=== PATIENT | female | born 1985 | race Caucasian/White ===

== ENCOUNTER 2018-06-10 15:47 | Emergency (ER) | payer OTHER ==
[~2018-06-10] VITALS: Ht 162.6 cm; Wt 83.5 kg
--- NOTE | 2018-06-10 16:22 | NUR ---
PT BIB SELF C/O EPIGASTRIC PAIN WITH VOMITING X 5 EPISODES TODAY. PT REPORTS ABD PAIN AT 3/10, AND BILATERAL HAND CRAMPING AT 10/10. REPORTS DRINKING 1 PINT OF VODKA EVERYDAY THIS WEEKEND, LAST DRINK WAS YESTERDAY AFTERNOON. VSS. ER MD TO SEE PT. MEDHX:PANCREATITIS
[2018-06-10] MEDS ORDERED: NACL 0.9% 1,000 ML IV ONE (17:08)
[2018-06-10] MEDS ORDERED: NACL 0.9% 1,000 ML IV SCH (17:08)
[2018-06-10] MEDS ORDERED: MORPHINE SULFATE 4 MG/ML SYR IVP ONE (17:10)
[2018-06-10] MEDS ORDERED: KETOROLAC 30 MG/ML VIAL IVP ONE (17:10)
[2018-06-10 17:50] LABS: ANION GAP 12.1 (8-16); CARBON DIOXIDE 30.4 mmol/L (21-32); CREATININE 0.7 mg/dL (0.6-1.3); POTASSIUM 3.5 mmol/L (3.5-5.1)
[2018-06-10 17:53] LABS: BASOPHILS % (AUTO) 0.2 % (0.0-2.0); EOSINOPHILS # (AUTO) 0.1 K/uL (0-0.4); EOSINOPHILS % (AUTO) 0.8 % (0.0-4.0); HEMATOCRIT 42.1 % (36-48); HEMOGLOBIN 14.7 g/dL (12.0-16.0); LYMPHOCYTES # (AUTO) 1.5 K/uL (2.5-16.5); LYMPHOCYTES % (AUTO) 14.8 % (20.5-51.1); MEAN CORPUSCULAR HEMOGLOBIN 42 pg (27-31); MEAN CORPUSCULAR HGB CONC 35 g/dL (33-37); MEAN CORPUSCULAR VOLUME 120.5 fL (80-94); MONOCYTES # (AUTO) 0.4 K/uL (0.8-1.0); MONOCYTES % (AUTO) 4.1 % (1.7-9.3); NEUTROPHILS % (AUTO) 80.1 % (42.2-75.2); PLATELET COUNT (AUTO) 247 K/uL (140-450); RED BLOOD CELL COUNT(AUTO) 3.49 MIL/uL (4.20-5.40); RED CELL DISTRIBUTION WIDTH 15.3 % (11.6-13.7); WHITE BLOOD COUNT (AUTO) 9.9 K/uL (4.8-10.8)
[2018-06-10 17:56] LABS: TOTAL BILIRUBIN 1.4 mg/dL (0.0-1.0)
[2018-06-10 18:08] LABS: APPEARANCE,URINE HAZY (CLEAR); BILIRUBIN,URINE 2+ (NEGATIVE); BLOOD, URINE NEGATIVE (NEGATIVE); COLOR,URINE ORANGE (YELLOW); LEUKOCYTE ESTERASE ,URINE TRACE (NEGATIVE); NITRITE, URINE POSITIVE (NEGATIVE); UGLUCOSE TRACE (NEGATIVE)
[2018-06-10 18:13] LABS: BARBITURATE, URINE NEG. ng/ml (NEG <=200); BENZODIAZEPINE, URINE NEG. ng/mL (NEG <=200); CANNABINOID, URINE NEG. ng/mL (NEG <=50); COCAINE, URINE NEG. ng/mL (NEG <=300); OPIATE, URINE NEG. ng/mL (NEG <=2000); PHENCYCLIDINE SCREEN,URINE NEG. ng/mL (NEG <=25)
[2018-06-10 18:32] LABS: RBC,URINE 0 /HPF (0-5); WBC,URINE 0-5 /HPF (0-5)
[2018-06-10] MEDS ORDERED: LEVOFLOXACIN 500 MG TAB PO ONE (18:50)
--- NOTE | 2018-06-10 19:10 | NUR ---
RECEIVED REPORT FROM ANTONIETA QUESADA.
[2018-06-10] MEDS ORDERED: cefTRIAXone 1,000 MG VIAL ONE (19:18)
--- NOTE | 2018-06-10 19:44 | NUR ---
Patient discharged with v/s stable. Written and verbal after care instructions given and explained. Patient alert, oriented and verbalized understanding of instructions. Ambulatory with steady gait. All questions addressed prior to discharge. ID band removed. Patient advised to follow up with PMD. Rx of Levaquin, Tramadol, Motrin given. Patient educated on indication of medication including possible reaction and side effects. Opportunity to ask questions provided and answered.
[2018-06-10 19:47] VITALS: BP 124/83
== END 2018-06-10 19:44 | disposition home or self-care (01) ==
LOC: MED 15:47
DX: N39.0 Urinary tract infection, site not specified (principal); Z91.040 Latex allergy status
CPT/HCPCS: 36415; 74176; 80053; 80305; 81001; 81025; 82150; 83690; 85025; 96361; 96365; 96375; 99284; J0696; J1885; J2270; J7030

== ENCOUNTER 2018-07-21 06:00 | Inpatient (IN) | payer OTHER ==
[~2018-07-21] VITALS: Ht 162.6 cm; Wt 81.6 kg
[2018-07-21 06:00] VITALS: BP 131/89
--- NOTE | 2018-07-21 06:12 | NUR ---
33 Y/O F PRESENTED TO ED WITH C/O VOMITTING AND R LATERAL SIDE PAIN X1DAY. AAOX4. 5-6 EPISODES OF VOMITTING LAST NIGHT. 8/10 PAIN, SHARP AND INTERMINTENT. RADIATES TO R LOWER BACK. DENIES HEMATURIA AND DYSURIA. TENDERNESS TO R LATERAL SIDE. PER PT USED HEATING PAD WITH NO RELIEF. BEDRAILS X1 UP, BED IN LOWEST POSTION. WILL CONTINUE TO MONITOR.
[2018-07-21] MEDS ORDERED: ONDANSETRON 4 MG ODT PO ONE (06:20)
[2018-07-21] MEDS ORDERED: NACL 0.9% 1,000 ML IV SCH (06:29)
[2018-07-21] MEDS ORDERED: ONDANSETRON 4 MG/2 ML VIAL IVP ONE ×2 (06:30→08:25)
[2018-07-21] MEDS ORDERED: KETOROLAC 30 MG/ML VIAL IVP ONE (06:30)
[2018-07-21 06:50] LABS: BASOPHILS % (AUTO) 0.3 % (0.0-2.0); EOSINOPHILS % (AUTO) 0.6 % (0.0-4.0); HEMATOCRIT 43.7 % (36-48); HEMOGLOBIN 15.3 g/dL (12.0-16.0); LYMPHOCYTES # (AUTO) 0.9 K/uL (2.5-16.5); LYMPHOCYTES % (AUTO) 11.7 % (20.5-51.1); MEAN CORPUSCULAR HEMOGLOBIN 42 pg (27-31); MEAN CORPUSCULAR HGB CONC 35 g/dL (33-37); MEAN CORPUSCULAR VOLUME 118.6 fL (80-94); MONOCYTES # (AUTO) 0.3 K/uL (0.8-1.0); NEUTROPHILS # (AUTO) 6.3 K/uL (1.8-7.7); NEUTROPHILS % (AUTO) 83.4 % (42.2-75.2); PLATELET COUNT (AUTO) 209 K/uL (140-450); RED BLOOD CELL COUNT(AUTO) 3.68 MIL/uL (4.20-5.40); RED CELL DISTRIBUTION WIDTH 15.1 % (11.6-13.7); WHITE BLOOD COUNT (AUTO) 7.5 K/uL (4.8-10.8)
[2018-07-21 06:55] LABS: APPEARANCE,URINE CLEAR (CLEAR); BILIRUBIN,URINE 1+ (NEGATIVE); BLOOD, URINE NEGATIVE (NEGATIVE); COLOR,URINE ORANGE (YELLOW); LEUKOCYTE ESTERASE ,URINE NEGATIVE (NEGATIVE); NITRITE, URINE NEGATIVE (NEGATIVE); PH,URINE 7.5 (5.0-9.0); UGLUCOSE NEGATIVE (NEGATIVE)
[2018-07-21 07:07] LABS: ALBUMIN 3.4 g/dL (3.4-5.0); ANION GAP 16.1 (8-16); CARBON DIOXIDE 26.5 mmol/L (21-32); CREATININE 0.7 mg/dL (0.6-1.3); POTASSIUM 3.6 mmol/L (3.5-5.1); TOTAL BILIRUBIN 1.7 mg/dL (0.0-1.0)
--- NOTE | 2018-07-21 07:07 | NUR ---
BEDSIDE REPORT GIVEN TO ANTONIETA TORRES. TRANSFER OF CARE AT THIS TIME.
--- NOTE | 2018-07-21 07:08 | NUR ---
Recieved report from ANTONIETA Nice. Pt's VSS. Nausea and vomiting have been improved. Ultra sounds done at bedside.
[2018-07-21 07:14] LABS: RBC,URINE NONE SEEN /HPF (0-5); WBC,URINE 0-5 /HPF (0-5)
[2018-07-21 07:15] LABS: YEAST,URINE Few /HPF (None Seen)
--- NOTE | 2018-07-21 08:19 | NUR ---
Patient being evaluated by DR AGUILAR at bedside.
[2018-07-21] MEDS ORDERED: MORPHINE SULFATE 4 MG/ML SYR IVP ONE (08:25)
[2018-07-21] MEDS ORDERED: ALBUTEROL 0.083% 2.5 MG/3 ML NEBU IH PRN (09:05)
[2018-07-21] MEDS ORDERED: ACETAMINOPHEN 325 MG TAB PO PRN (09:05)
[2018-07-21] MEDS ORDERED: DEXT 5% /NACL 0.9% 1,000 ML IV SCH (09:05)
[2018-07-21] MEDS ORDERED: ONDANSETRON 4 MG/2 ML VIAL IVP PRN (09:05)
--- NOTE | 2018-07-21 10:01 | NUR ---
Pt is holding for being admitted and on NPO status.
[2018-07-21] MEDS: MORPHINE SULFATE 2 MG/ML SYR IVP PRN ×3 (10:22→22:09)
--- NOTE | 2018-07-21 10:22 | NUR ---
PT C/O HER PAIN IS 5/10. MORPHINE SALFATE 2 MG WAS GIVEN BY IV PUSH.
[2018-07-21] MEDS ORDERED: ALBU0.0912 IH (11:11)
--- NOTE | 2018-07-21 11:45 | NUR ---
MD Quinten was paged regarding pt's pain 08/25 and the permission of giving morphine.
[2018-07-21] MEDS: MORPHINE SULFATE 4 MG/ML SYR IVP PRN (12:10)
--- NOTE | 2018-07-21 12:14 | NUR ---
Talked to Dr. Quinten MD through phone at 11:58 am, July 21, 2018. According to Dr. Quinten MD, pt has been given Morphine 4 mg for her pain 08/25 at 12:10 pm.
--- NOTE | 2018-07-21 12:26 | NUR ---
Pt's pain has been improved to 2/10. No any adverse drug effects noticed. Pt's VSS, alerted and oriented.
--- NOTE | 2018-07-21 12:26 | NUR ---
Erica alcantar in ED - 07/21/18 at 1246 by MED Pt's pain has been improved to 02/25. No any adverse drug effects noticed. Pt's VSS, alerted and oriented.
[2018-07-21] MEDS ORDERED: PIPERACILLIN/TAZOBACTAM 3.375 GM in DEXTROSE 5% 50 ML IV SCH (13:00)
[2018-07-21] MEDS ORDERED: LACTULOSE 20 GM/30 ML UDC PO SCH (13:05)
[2018-07-21] MEDS ORDERED: PIPER/TAZO 3.375GM/D5W PREMIX 50 ML IV SCH ×2 (13:22→21:00)
--- NOTE | 2018-07-21 13:50 | NUR ---
PATIENT ARRIVED UNIT VIA WHEELCHAIR ACCOMPANIED BY ER NURSE BRIAN. PATIENT IS AAOX4. DENIES PAIN AND SOB. RESPIRATION EVEN AND UNLABORED ON RA. NO SIGNS OF DISTRESS NOTED. IV ON LAC 20G, CLEAN AND INTACT, INFUSING PER MD ORDER. SKIN CLEAN AND INTACT. PATIENT IS ABLE TO AMBULATE AND CONTINENT. ORIENTED PATIENT TO THE ROOM, HOW TO USE THE CALL LIGHT, TV, LIGHT REMOTE, BED REMOTE, AND BATHROOM. PATIENT VERBALIZED UNDERSTANDING. DISCUSSED PLAN OF CARE WITH PATIENT, AND PATIENT VERBALIZED OK. VITAL SIGNS TAKEN AND MRSA COLLECTED. ALLERGY PRECAUTION ARM BAND APPLIED. BED IN LOW POSITION AND CALL LIGHT WITHIN REACH. INSTRUCTED PATIENT TO USE THE CALL LIGHT FOR ANY ASSISTANCE AND PATIENT WAS AWARE.
--- NOTE | 2018-07-21 13:50 | NUR ---
Patient has been admitted to Med-Surg, room 126B. Belongings list completed. Report to ANTONIETA Mei.
[2018-07-21] MEDS ORDERED: POTASSIUM CHLORIDE 20% 40 MEQ/15 ML UDC PO SCH (14:00)
[2018-07-21] MEDS ORDERED: THIAMINE 200 MG/2 ML VIAL IM SCH (14:00)
[2018-07-21] MEDS: SENNA 8.6 MG TAB PO SCH ×2 (14:17→16:48)
[2018-07-21] MEDS: chlordiazePOXIDE 25 MG CAP PO SCH ×2 (14:18→16:47)
--- NOTE | 2018-07-21 14:20 | NUR ---
ADMINISTERED SCHEDULE MEDS PER MD ORDER, PATIENT TOLERATED WELL. PATIENT IS RESTING ON BED AT THIS TIME. DENIES PAIN. NO SIGNS OF DISTRESS NOTED. BED IN LOW POSITION AND CALL LIGHT WITHIN REACH. INSTRUCTED PATIENT TO USE THE CALL LIGHT FOR ANY ASSISTANCE AND PATIENT WAS AWARE.
--- NOTE | 2018-07-21 16:10 | NUR ---
DR WILLARD IS TALKING TO PATIENT AT BEDSIDE. NO SIGNS OF DISTRESS NOTED.
--- NOTE | 2018-07-21 16:35 | NUR ---
PLACED A HAT IN THE TOILET AND INSTRUCTED PATIENT THAT STOOL NEEDS TO BE COLLECT FOR CULTURE. AND PATIENT WAS AWARE.
[2018-07-21] MEDS: NACL 0.9% 1,000 ML IV SCH (16:52)
--- NOTE | 2018-07-21 16:52 | NUR ---
PATIENT COMPLAINED THAT 8/10 PAIN ON HER RIGHT ABDOMEN REGION, ADMINISTERED PRN PAIN MED PER MD ORDER, PATIENT TOLERATED WELL. PATIENT IS PLAYING HER PHONE ON BED AT THIS TIME. SAFETY MEASURES IN PLACE. BED IN LOW POSITION AND CALL LIGHT WITHIN REACH.
[2018-07-21] MEDS ORDERED: LEVOFLOXACIN 500 MG/D5W PREMIX 100 ML IV SCH (17:00)
--- NOTE | 2018-07-21 17:25 | NUR ---
PATIENT IS TALKING TO KENDRA AT BEDSIDE. NO SIGNS OF DISTRESS NOTED. SAFETY MEASURES IN PLACE.
[2018-07-21 18:28] VITALS: BP 141/80
--- NOTE | 2018-07-21 18:45 | NUR ---
PATIENT HAS A MEDIUM LIQUID BM. COLLECTED STOOL CULTURE AND DELIVERED TO LAB.
--- NOTE | 2018-07-21 19:18 | NUR ---
ENDORSED PATIENT AT BEDSIDE TO BAGGING SALVAGER NURSE FOR CONTINUITY OF CARE. PATIENT IS IN STABLE CONDITION.
--- NOTE | 2018-07-21 19:20 | NUR ---
RECEIVED BEDSIDE REPORT FROM DAY SHIFT NURSE. PATIENT IS AWAKE, ALERT, AND COOPERATIVE. RESPIRATION EVEN UNLABORED ON ROOM AIR. SKIN IS WARM AND DRY. IV PATENT AND INTACT. NO DISTRESS NOTED. PLAN OF CARE WAS DISCUSSED. ALL SAFETY MEASURES IN PLACE. PATIENT IS AMBULATORY AND ABLE TO MAKE NEEDS KNOWN. BED IS AT LOW POSITION. CALL LIGHT WITHIN REACH AND VERBALIZES ITS USE. WILL CONTINUE TO MONITOR.
--- NOTE | 2018-07-21 20:00 | NUR ---
INITIAL ASSESSMENT DONE. VITALS WERE TAKEN. PATIENT IS IN STABLE CONDITION. WILL CONTINUE TO MONITOR
[2018-07-21] MEDS: metroNIDAZOLE 500 MG/NS PREMIX 100 ML IV SCH (20:34)
[2018-07-21] MEDS: LACTULOSE 20 GM/30 ML UDC PO SCH (20:34)
--- NOTE | 2018-07-21 20:58 | NUR ---
RECEIVED PATIENT ON ROOM AIR, PULSE OX SAT 94%. PATIENT COMPLAINS OF BREATHING TO BE FEELING "TIGHT". PATIENT REQUESTS BREATHING TX. PRN BREATHING TREATMENT ADMINISTERED. POST TX, PATIENT STATES TO BE "FEELING BETTER". NO DISTRESS NOTED. WILL CONTINUE TO MONITOR.
--- NOTE | 2018-07-21 21:00 | NUR ---
ALL SCHEDULED MEDS WERE GIVEN AND TOLERATED THEM WELL. NO ASE NOTED. WILL CONTINUE TO MONITOR.
--- NOTE | 2018-07-21 22:00 | NUR ---
PATIENT COMPLAINED OF ABDOMINAL PAIN 8. PRN PAIN MED ADMINISTERED. WILL CONTINUE TO MONITOR.
--- NOTE | 2018-07-21 23:00 | NUR ---
PATIENT SLEEPING RESPIRATION EVEN UNLABORED ON ROOM AIR. NO DISTRESS NOTED. WILL CONTINUE TO MONITOR
[2018-07-22] VITALS: BP 120/77
--- NOTE | 2018-07-22 | NUR ---
VITALS WERE TAKEN. PATIENT IS IN STABLE CONDITION. NO DISTRESS NOTED. WILL CONTINUE TO MONITOR
--- NOTE | 2018-07-22 02:00 | NUR ---
CHECKED PATIENT. PATIENT SLEEPING RESPIRATION EVEN UNLABORED ON ROOM AIR. NO DISTRESS NOTED. WILL CONTINUE TO MONITOR.
[2018-07-22] MEDS: NACL 0.9% 1,000 ML IV SCH ×2 (02:25→12:25)
--- NOTE | 2018-07-22 04:00 | NUR ---
VITALS WERE TAKEN. PATIENT CONDITION IS STABLE. NO DISTRESS NOTED. WILL CONTINUE TO MONITOR.
[2018-07-22] MEDS: metroNIDAZOLE 500 MG/NS PREMIX 100 ML IV SCH ×2 (04:34→13:51)
[2018-07-22] MEDS: MORPHINE SULFATE 2 MG/ML SYR IVP PRN (05:14)
[2018-07-22 06:06] LABS: MAGNESIUM 1.2 mg/dL (1.8-2.4); PHOSPHORUS 3.3 mg/dL (2.5-4.9)
[2018-07-22 06:25] LABS: ALBUMIN 2.7 g/dL (3.4-5.0); ANION GAP 12.1 (8-16); CARBON DIOXIDE 26.1 mmol/L (21-32); CREATININE 0.5 mg/dL (0.6-1.3); POTASSIUM 3.2 mmol/L (3.5-5.1); TOTAL BILIRUBIN 1.7 mg/dL (0.0-1.0)
[2018-07-22 06:40] LABS: BASOPHILS % (AUTO) 0.4 % (0.0-2.0); EOSINOPHILS # (AUTO) 0.2 K/uL (0-0.4); HEMATOCRIT 38.1 % (36-48); HEMOGLOBIN 13.2 g/dL (12.0-16.0); MEAN CORPUSCULAR HEMOGLOBIN 42 pg (27-31); MEAN CORPUSCULAR HGB CONC 35 g/dL (33-37); MEAN CORPUSCULAR VOLUME 120.7 fL (80-94); MONOCYTES # (AUTO) 0.2 K/uL (0.8-1.0); MONOCYTES % (AUTO) 3.6 % (1.7-9.3); NEUTROPHILS # (AUTO) 4.1 K/uL (1.8-7.7); PLATELET COUNT (AUTO) 156 K/uL (140-450); RED BLOOD CELL COUNT(AUTO) 3.16 MIL/uL (4.20-5.40); RED CELL DISTRIBUTION WIDTH 14.9 % (11.6-13.7); WHITE BLOOD COUNT (AUTO) 5.4 K/uL (4.8-10.8)
--- NOTE | 2018-07-22 07:27 | NUR ---
ENDORSED PATIENT TO DAY SHIFT NURSE FOR CONTINUITY OF CARE. PATIENT IS IN STABLE CONDITION.
--- NOTE | 2018-07-22 07:28 | NUR ---
RECEIVED REPORT FROM SPRAY I PAINTER NURSE WENDIE FOR CONTINUITY OF CARE. PT IN STABLE CONDITION. IV INTACT AND PATENT. RESPIRATIONS EVEN AND UNLABORED. SAFETY MEASURES IN PLACE. BED IN LOW POSITION. CALL LIGHT AT BEDSIDE. WILL CONTINUE TO MONITOR.
[2018-07-22 08:00] VITALS: BP 115/78
--- NOTE | 2018-07-22 08:00 | NUR ---
PATIENT HAS BEEN SCREENED AND CATEGORIZED MODERATE NUTRITION RISK. PATIENT WILL BE SEEN WITHIN 3-5 DAYS OF ADMISSION. 07/23/18SH[address]
[2018-07-22] MEDS: LACTULOSE 20 GM/30 ML UDC PO SCH (09:12)
[2018-07-22] MEDS: SENNA 8.6 MG TAB PO SCH ×2 (09:12→13:50)
[2018-07-22] MEDS: chlordiazePOXIDE 25 MG CAP PO SCH ×2 (09:13→13:49)
[2018-07-22] MEDS: MORPHINE SULFATE 4 MG/ML SYR IVP PRN (09:13)
--- NOTE | 2018-07-22 09:15 | NUR ---
GAVE ORDERED DUE MEDICATIONS AT THIS TIME. PT TOLERATED WELL. WILL CONTINUE TO MONITOR.
--- NOTE | 2018-07-22 11:40 | NUR ---
GAVE DUE ORAL MEDICATIONS AT THIS TIME. PT TOLERATED WELL. WILL CONTINUE TO MONITOR.
[2018-07-22] MEDS ORDERED: POTASSIUM CHLORIDE 10 MEQ TABER PO SCH (12:00)
--- NOTE | 2018-07-22 13:33 | NUR ---
PT LYING IN BED SLEEPING IN STABLE CONDITION. RESPIRATIONS EVEN AND UNLABORED. BED IN LOW POSITION. CALL LIGHT AT BEDSIDE. WILL CONTINUE TO MONITOR.
[2018-07-22] MEDS ORDERED: CIPR500T4 PO (14:01)
[2018-07-22] MEDS ORDERED: METR250T2 PO (14:01)
--- NOTE | 2018-07-22 14:39 | NUR ---
07/22/18 RD INITIAL ASSESSMENT COMPLETED PLEASE REFER TO NUTRITION ASSESSMENT UNDER CARE ACTIVITY FOR ESTIMATED NUTRITIONAL NEEDS. 1. CONTINUE FULL LIQUID DIET MEDICALLY NECESSARY. 2. RECOMMEND HEPATIC DIET WHEN DIET CAN BE ADVANCED 3. GENERAL HEALTHY EATING EDUCATION WAS PROVIDED 4. RD TO FOLLOW-UP 3-5 DAYS, MODERATE RISK SHIRLEY KUMAR RD
--- NOTE | 2018-07-22 15:02 | NUR ---
PT GETTING DRESSED PREPARING TO GO HOME AT THIS TIME. PT IN STABLE CONDITION.
--- NOTE | 2018-07-22 16:10 | NUR ---
GAVE DISCHARGE INSTRUCTIONS, WORK NOTE, AND PRESCRIPTIONS FOR HOME PHARMACY. PT VERBALIZED UNDERSTANDING OF INSTRUCTIONS. IV REMOVED, LUMEN INTACT. ID BAND REMOVED. PT REFUSED WHEELCHAIR. WALKED PT TO LOBBY WHERE FAMILY WAS WAITING WITH VEHICLE. PT IN STABLE CONDITION.
[2018-07-23 08:29] LABS: HEPATITIS A ANTIBODY IGM Negative (Negative); HEPATITIS B CORE AB TOTAL Negative (Negative); HEPATITIS B SURFACE ANTIBODY Non Reactive (.); HEPATITIS B SURFACE ANTIGEN Negative (Negative)
== END 2018-07-22 16:10 | disposition home or self-care (01) | DRG 280 ==
LOC: MED 06:00 → MMU 09:01
PROVIDERS: ADMIT Internal Medicine Pulmonary Disease; ATTEND Internal Medicine Pulmonary Disease
DX: K70.10 Alcoholic hepatitis without ascites (principal); R65.11 Systemic inflammatory response syndrome (SIRS) of non-infectious origin with acute organ dysfunction; E86.9 Volume depletion, unspecified; K52.9 Noninfective gastroenteritis and colitis, unspecified; F10.10 Alcohol abuse, uncomplicated; J45.909 Unspecified asthma, uncomplicated; N20.0 Calculus of kidney; Y90.9 Presence of alcohol in blood, level not specified; Z91.040 Latex allergy status
CPT/HCPCS: 36415; 76705; 80053; 81001; 82977; 83690; 83735; 84100; 85025; 86704; 86706; 86708; 86709; 86803; 87045; 87081; 87086; 87340; 96361; 96374; 96375; 96376; 99285; J1885; J1956; J2270; J2405; J2543; J3411; J3490; J7030; J7042; J7613; Q0092; Q0162; Q9967

== ENCOUNTER 2021-04-01 07:33 | Emergency (ER) | payer OTHER ==
[~2021-04-01] VITALS: Ht 162.6 cm; Wt 76.7 kg
[~2021-04-01 07:33] MED LIST: ALBU0.0912 IH; CIPR500T4 PO; METR-520 PO
[2021-04-01 07:46] VITALS: BP 145/92
[2021-04-01] MEDS ORDERED: ONDANSETRON 4 MG ODT PO ONE (07:55)
--- NOTE | 2021-04-01 07:58 | NUR ---
PT AMBULATED TO ER BED 2
[2021-04-01] MEDS ORDERED: NACL 0.9% 1,000 ML IV ONE (08:10)
--- NOTE | 2021-04-01 08:27 | NUR ---
18G IV ESTABLISHED IN R AC AND BLOODWORK COLLECTED. BLOODWORK COLLECTED AND JACKIE COLLECTED AND WALKED TO LAB
--- NOTE | 2021-04-01 08:27 | NUR ---
35/F BIB SELF WITH C/O EPIGASTRIC PAIN, N/V/D X2 DAYS. REPORTS TAKING PEPTO WITH NO RELIEF, DENIES DYSURIA, CP, SOB. PER PATIENT SHE WAS WATCHING A PLAY WHEN SHE STARTED TO FEEL DIZZY ALONG WITH N/V. PT STATED LAST EPISODIE OF N/V/D WAS THIS AM AFTER TAKING PEPTO. ABDOMEN IS SOFT AND TENDER TO TOUCH UPON PALPATION ON UPPER ABODMEN REGION. BOWEL SOUNDS ACTIVE. PT A&OX4, SKIN DRY AND ITNACT MEDHX: ASTHMA ALLERGIES: LATEX
[2021-04-01 08:32] LABS: BASOPHILS % (AUTO) 0.6 % (0.0-2.0); EOSINOPHILS # (AUTO) 0.1 K/uL (0-0.4); EOSINOPHILS % (AUTO) 1.1 % (0.0-4.0); HEMATOCRIT 41.2 % (36-48); HEMOGLOBIN 14.3 g/dL (12.0-16.0); LYMPHOCYTES # (AUTO) 0.4 K/uL (2.5-16.5); LYMPHOCYTES % (AUTO) 7.6 % (20.5-51.1); MEAN CORPUSCULAR HEMOGLOBIN 38 pg (27-31); MEAN CORPUSCULAR HGB CONC 35 g/dL (33-37); MEAN CORPUSCULAR VOLUME 108.1 fL (80-94); MONOCYTES # (AUTO) 0.2 K/uL (0.8-1.0); MONOCYTES % (AUTO) 4.1 % (1.7-9.3); NEUTROPHILS # (AUTO) 4.7 K/uL (1.8-7.7); NEUTROPHILS % (AUTO) 86.6 % (42.2-75.2); PLATELET COUNT (AUTO) 134 K/uL (140-450); RED BLOOD CELL COUNT(AUTO) 3.81 MIL/uL (4.20-5.40); RED CELL DISTRIBUTION WIDTH 16.3 % (11.6-13.7); WHITE BLOOD COUNT (AUTO) 5.4 K/uL (4.8-10.8)
[2021-04-01] MEDS ORDERED: ALUMINUM HYD/MAG/SIMETHICONE 30 ML UDC PO ONE (08:40)
[2021-04-01 08:56] LABS: ALBUMIN 3.3 g/dL (3.4-5.0); CREATININE 0.4 mg/dL (0.6-1.3); TOTAL BILIRUBIN 6.1 mg/dL (0.0-1.0)
--- NOTE | 2021-04-01 10:04 | NUR ---
BUILDING ESTIMATOR AT PATIENT BEDSIDE
[2021-04-01] MEDS ORDERED: ONDA-188 PO (10:59)
[2021-04-01 11:25] VITALS: BP 124/58
--- NOTE | 2021-04-01 11:25 | NUR ---
Patient discharged with v/s stable. Written and verbal after care instructions ABOUT GASTRITIS AND VOMITING given and explained. Patient alert, oriented and verbalized understanding of instructions. Ambulatory with steady gait. All questions addressed prior to discharge. ID band removed. Patient advised to follow up with PMD. Rx of ZOFRAN ODT given. Patient educated on indication of medication including possible reaction and side effects. Opportunity to ask questions provided and answered.
== END 2021-04-01 11:25 | disposition home or self-care (01) ==
LOC: MED 07:33
DX: R10.13 Epigastric pain (principal); Z20.822 Contact with and (suspected) exposure to COVID-19; R11.2 Nausea with vomiting, unspecified; R19.7 Diarrhea, unspecified; K76.9 Liver disease, unspecified; J45.909 Unspecified asthma, uncomplicated; Z79.899 Other long term (current) drug therapy; Z91.040 Latex allergy status
CPT/HCPCS: 36415; 76705; 80053; 81025; 83690; 85025; 87426; 96360; 99285; J7030; Q0092; Q0162

== ENCOUNTER 2021-04-16 00:20 | Inpatient (IN) | payer OTHER, SELFPAY ==
[~2021-04-16] VITALS: Ht 162.6 cm; Wt 75.7 kg
[~2021-04-16 00:20] MED LIST changes: +ONDA-188 PO
[2021-04-16 00:28] VITALS: BP 129/90
--- NOTE | 2021-04-16 00:32 | NUR ---
PT TAKEN TO BED 8
[2021-04-16 00:46] LABS: APPEARANCE,URINE CLEAR (CLEAR); BILIRUBIN,URINE 2+ (NEGATIVE); BLOOD, URINE TRACE-I (NEGATIVE); COLOR,URINE DARK YELLOW (YELLOW); LEUKOCYTE ESTERASE ,URINE TRACE (NEGATIVE); NITRITE, URINE NEGATIVE (NEGATIVE); PH,URINE 8.5 (5.0-9.0); UGLUCOSE NEGATIVE (NEGATIVE)
[2021-04-16 01:00] LABS: RBC,URINE 0-5 /HPF (0-5)
--- NOTE | 2021-04-16 01:30 | NUR ---
SEEN AND EXAMINED BY NELSON.
[2021-04-16] MEDS ORDERED: LACTATED RINGERS 1,000 ML IV ONE (01:45)
[2021-04-16] MEDS ORDERED: diphenhydrAMINE 50 MG/ML VIAL IVP ONE (01:45)
[2021-04-16] MEDS ORDERED: METOCLOPRAMIDE 10 MG/2 ML INJ VIAL IVP ONE (01:45)
--- NOTE | 2021-04-16 02:00 | NUR ---
PT GIVEN NEW IV SITE 22G ON THE LEFT HAND. PT WAS GIVEN BENADRYL AND REGALN IVP ORDERED. LACTED RINGERS HUNG AND BOLUS STARTED.
[2021-04-16 02:22] LABS: PROTHROMBIN TIME 16.8 secs (10.8-13.4)
[2021-04-16 02:25] LABS: ANION GAP 14.3 (8-16); CARBON DIOXIDE 26.1 mmol/L (21-32); CREATININE 0.5 mg/dL (0.6-1.3); MAGNESIUM 1.1 mg/dL (1.8-2.4); POTASSIUM 3.4 mmol/L (3.5-5.1); TOTAL BILIRUBIN 6.4 mg/dL (0.0-1.0)
[2021-04-16 02:42] LABS: BASOPHILS % (AUTO) 0.5 % (0.0-2.0); EOSINOPHILS # (AUTO) 0.1 K/uL (0-0.4); EOSINOPHILS % (AUTO) 1.4 % (0.0-4.0); HEMATOCRIT 33.7 % (36-48); HEMOGLOBIN 11.6 g/dL (12.0-16.0); LYMPHOCYTES # (AUTO) 0.8 K/uL (2.5-16.5); LYMPHOCYTES % (AUTO) 11.8 % (20.5-51.1); MEAN CORPUSCULAR HEMOGLOBIN 37 pg (27-31); MEAN CORPUSCULAR HGB CONC 34 g/dL (33-37); MEAN CORPUSCULAR VOLUME 107.8 fL (80-94); MONOCYTES # (AUTO) 0.4 K/uL (0.8-1.0); MONOCYTES % (AUTO) 5.7 % (1.7-9.3); NEUTROPHILS # (AUTO) 5.3 K/uL (1.8-7.7); NEUTROPHILS % (AUTO) 80.6 % (42.2-75.2); PLATELET COUNT (AUTO) 67 K/uL (140-450); RED BLOOD CELL COUNT(AUTO) 3.13 MIL/uL (4.20-5.40); RED CELL DISTRIBUTION WIDTH 15.8 % (11.6-13.7); WHITE BLOOD COUNT (AUTO) 6.6 K/uL (4.8-10.8)
[2021-04-16] MEDS ORDERED: MORPHINE SULFATE 4 MG/ML SYR IVP ONE (04:25)
--- NOTE | 2021-04-16 04:36 | NUR ---
PT C/O OF SEVERE PAIN IN ABDOMEN; SHE WAS GIVEN ORDERD MORPHINE 4MG IVP X1 DOSE. WILL MONITOR FOR EFFECT.
--- NOTE | 2021-04-16 04:38 | NUR ---
Ultrasound at bedside.
--- NOTE | 2021-04-16 04:39 | NUR ---
ULTRA SOUND AT BEDSIDE FOR US OF THE GALLBLADDER.
--- NOTE | 2021-04-16 06:26 | NUR ---
US SACN DONE AT BEDSIDE. CT SCAN OF ABDOMEN ORDERED WITH CONTRAST, CONSENT SIGNED AT BEDSIDE. NEW IV SITE LAC 20 GUAGE PROVIDED FOR THE IV CONTRAST.
--- NOTE | 2021-04-16 06:57 | NUR ---
PT TAKEN TO CT
--- NOTE | 2021-04-16 07:07 | NUR ---
PT WENT DOWN FOR CT SCAN VIA W/C REPORT GIVEN TO RADHA FUNG RELIEVING NURSE. PT IN STABLE CONDITION.
[2021-04-16] MEDS ORDERED: MAG SULF 2000 MG/WATER PREMIX 50 ML IV ONE (07:20)
[2021-04-16] MEDS ORDERED: POTASSIUM CHLORIDE 10 MEQ TABER PO ONE (07:20)
--- NOTE | 2021-04-16 07:20 | NUR ---
Received bedside report from Estelle Prado, transfer of care at this time Addendum: 04/16/21 at 0821 by JEWELL Received bedside report from Marta Prado, transfer of care at this time
[2021-04-16] MEDS ORDERED: cefTRIAXone 1,000 MG VIAL ONE (07:31)
[2021-04-16] MEDS ORDERED: LORazepam 2 MG/ML VIAL IVP ONE (08:25)
--- NOTE | 2021-04-16 08:40 | NUR ---
walked jimmy swab down to lab
[2021-04-16] MEDS ORDERED: MORPHINE SULFATE 4 MG/ML SYR IVP PRN (08:45)
[2021-04-16] MEDS ORDERED: FOLIC ACID 1 MG TAB PO SCH (09:00)
[2021-04-16] MEDS: MULTIVITAMIN/MINERALS 1 TAB PO SCH (09:00)
[2021-04-16] MEDS ORDERED: MULTIVITAMIN 1 TAB ONE (09:07)
[2021-04-16] MEDS: THIAMINE 100 MG TAB PO SCH (09:09)
[2021-04-16] MEDS: chlordiazePOXIDE 25 MG CAP PO SCH ×3 (09:10→17:12)
[2021-04-16] MEDS: DEXT 5% /NACL 0.9% 1,000 ML IV SCH ×2 (09:11→23:00)
--- NOTE | 2021-04-16 09:50 | NUR ---
Patient will be admitted to care of DR SALDANA. Admited to MEDR . Will go to room 105 A. Belongings list completed. Report to ANTONIETA CURRAN.
[2021-04-16 09:55] VITALS: BP 109/76
--- NOTE | 2021-04-16 09:55 | NUR ---
ADMITTED PT FROM ED VIA WHEELCHAIR, AMBULATORY. PT IA ALERT, A/OX4. BREATHING SYMMETRICAL, ON ROOM AIR. C/O ABDOMINAL PAIN STATED WAS GIVEN MORPHINE AT THE ER AND HELPED WITH PAIN. NOTED ABDOMEN LARGE, ROUND DISTENDED. WITH LAC 20G AND L HAND 22G RUNNING D5NS AT 75CC/HR. TRIED TO CALL MOTHER NATALIA [phone] PER PT REQUEST BUT DIDN'T ANSWER, LEFT MESSAGE. NOTED WITH JAUNDICED SKIN. [id number] RR17 [id number] O2 98% CALL LIGHT WITHIN REACH. ALL SAFETY MEASURES IN PLACE.
--- NOTE | 2021-04-16 10:51 | NUR ---
PATIENT HAS BEEN SCREENED AND CATEGORIZED HIGH NUTRITION RISK. PATIENT WILL BE SEEN WITHIN 1-2 DAYS OF ADMISSION. /04/09 RECEIVED REFERRAL FOR NAUSEA AND VOMITING OVER THREE DAYS [address]
--- NOTE | 2021-04-16 12:30 | NUR ---
PT TAKEN TO NUCLEAR MED FOR HIDA SCAN
--- NOTE | 2021-04-16 13:25 | NUR ---
CALLED BY EPI FROM NUCLEAR MED. MORPHINE GIVEN TO PT WHILE ON NUCLEAR MED FOR PAIN. PT IS AWAKE, ALERT. BREATHING SYMMETRICAL.
--- NOTE | 2021-04-16 14:02 | NUR ---
PT BACK FROM [facility] Undergarments.
[2021-04-16] MEDS ORDERED: ONDANSETRON 4 MG/2 ML VIAL IVP PRN (14:50)
[2021-04-16] MEDS ORDERED: METOCLOPRAMIDE 10 MG/2 ML INJ VIAL IVP PRN (14:50)
[2021-04-16] MEDS: HYDROcodone/APAP 5/325 MG 1 TAB TAB PO PRN ×2 (14:59→21:43)
[2021-04-16 16:00] VITALS: BP 91/52
--- NOTE | 2021-04-16 16:35 | NUR ---
PT TAKEN BACK TO NUCLEAR MEDICINE PER EPI, RADIOLOGIST WANTED A DELAYED SCAN.
--- NOTE | 2021-04-16 17:00 | NUR ---
PT BACK FROM NUCLEAR MED. PT IN STABLE CONDITION
--- NOTE | 2021-04-16 17:21 | NUR ---
PT AWAKE IN BED. BREATHING SYMMETRICAL. DENIES PAIN AT THIS TIME. CALL LIGHT WITHIN REACH. FREQUENT ROUNDS DONE. ALL SAFETY MEASURES IN PLACE.
[2021-04-16] MEDS: LORazepam 2 MG/ML VIAL IVP PRN (18:46)
[2021-04-16 20:00] VITALS: BP 110/70
[2021-04-17 04:00] VITALS: BP 94/60
--- NOTE | 2021-04-17 04:16 | NUR ---
RECEIVED PT SLEEPING, EASILY AROUSABLE, DENIES ANY PAIN, NO SOB NOTED, IVF INFUSING WELL, CALL LIGHT WITHIN REACH.
--- NOTE | 2021-04-17 06:10 | NUR ---
SEEN PT SLEEPING, EASILY AROUSABLE TO NAME, DENIES ANY PAIN, IVF INFUSING WELL, NO N/V AT THIS TIME, TOLERATING CLEAR LIQUID DIET, MONITORED CLOSELY.
[2021-04-17 06:41] LABS: BASOPHILS % (AUTO) 0.9 % (0.0-2.0); EOSINOPHILS # (AUTO) 0.2 K/uL (0-0.4); EOSINOPHILS % (AUTO) 3.9 % (0.0-4.0); HEMATOCRIT 32.4 % (36-48); HEMOGLOBIN 11.1 g/dL (12.0-16.0); LYMPHOCYTES # (AUTO) 0.7 K/uL (2.5-16.5); LYMPHOCYTES % (AUTO) 17.7 % (20.5-51.1); MEAN CORPUSCULAR HEMOGLOBIN 38 pg (27-31); MEAN CORPUSCULAR HGB CONC 34 g/dL (33-37); MEAN CORPUSCULAR VOLUME 109.6 fL (80-94); MONOCYTES # (AUTO) 0.3 K/uL (0.8-1.0); MONOCYTES % (AUTO) 7.8 % (1.7-9.3); NEUTROPHILS # (AUTO) 2.9 K/uL (1.8-7.7); NEUTROPHILS % (AUTO) 69.7 % (42.2-75.2); PLATELET COUNT (AUTO) 69 K/uL (140-450); RED BLOOD CELL COUNT(AUTO) 2.96 MIL/uL (4.20-5.40); RED CELL DISTRIBUTION WIDTH 15.8 % (11.6-13.7); WHITE BLOOD COUNT (AUTO) 4.1 K/uL (4.8-10.8)
[2021-04-17 07:00] LABS: ALBUMIN 2.5 g/dL (3.4-5.0); ANION GAP 11.8 (8-16); CARBON DIOXIDE 26.3 mmol/L (21-32); CREATININE 0.4 mg/dL (0.6-1.3); MAGNESIUM 1.6 mg/dL (1.8-2.4); POTASSIUM 3.1 mmol/L (3.5-5.1); TOTAL BILIRUBIN 5.7 mg/dL (0.0-1.0)
--- NOTE | 2021-04-17 07:35 | NUR ---
PT SLEEPING, NO SIGNS OF DISTRESS, REPORT GIVEN TO KARTIK FUNG FOR CONTINUITY OF CARE.
[2021-04-17] MEDS: THIAMINE 100 MG TAB PO SCH (09:43)
[2021-04-17] MEDS: MULTIVITAMIN/MINERALS 1 TAB PO SCH (09:43)
[2021-04-17] MEDS: chlordiazePOXIDE 25 MG CAP PO SCH ×3 (09:44→18:36)
[2021-04-17] MEDS: LORazepam 2 MG/ML VIAL IVP PRN ×2 (09:44→20:39)
[2021-04-17] MEDS: PANTOPRAZOLE 40 MG INJ VIAL IVP SCH (09:44)
--- NOTE | 2021-04-17 10:30 | NUR ---
DC PLANNING PATIENT IS A 35 YEAR OLD FEMALE ADMITTED AT [facility]/ED ON 04/16/2021. PT. HAS HX. OF CHRONIC ALCOHOL ABUSE, AND ALCOHOL-RELATED PANCREATIS IN 2008. PATIENT HAS ABDOMINAL PAIN, CONSTANT AND ASSOCIATED WITH NAUSEA, VOMITING AND LOOSE STOOL. PATIENT PRESENTING WITH POSSIBLE ACUTE ALCOHOL WITHDRAWALS PRIOR TO ARRIVAL. SW MEET WITH PATIENT AT BED SIDE TO DISCUSS AND GATHER PATIENTS COLLATERAL INFORMATION. PER PATIENT SHE IS RECENTLY FROM HER , DUE TO HER RECENT RELAPSE AND DRINKING AT HOME WHILE HER IS KEEPING SOBER AND PATIENT IS NOT THEREFORE; BOTH DECIDED IS BETTER FOR NOW THAT PATIENT LIVES AT HER MOTHER'S HOME. PATIENT STATED THAT SHE DID NOT HAVE A.D. AND DECLINED THE INFORMATION PACKET PROVIDED BY MARLENI. PATIENT STATED THAT HER MOTHER NATALIA BUSTOS IS HER MEDICAL DECISION MAKER. PATIENT STATED THAT SHE HAS 2 CHILDREN AGES 14 AND 7 YEARS OLD THAT ARE LIVING WITH HER WHILE SHE IS PLANNING TO GO TO A RESIDENTIAL SUBSTANCE ABUSE PROGRAM AFTER SHE IS DISCHARGE FROM [facility]. ACCORDING TO PATIENT SHE HAS FAMILY SUPPORT FROM HER SISTER, MOTHER AND EVEN HER . WHEN DISCUSSING WITH PATIENT THE REASONS OF HER CURRENT HOSPITALIZATION PATIENT ADMITTED FEELING SHAME SHE RELAPSE AND WANTED TO GET SOBER ON HER OWN WITHOUT WORKING A PROGRAM. SW EDUCATED PATIENT ON THE USE AND ABUSE OF SUBSTANCES AND THE IMPACT THAT IS CAUSING ON HER BODY. SW PROVIDED PATIENT WITH RESOURCES TO EMERGENCY BASIC NEEDS, WELL OTHER ADDITIONAL RESOURCES AND ALTERNATIVES TO LEVELS OF CARE DEPENDING ON HER COMMITMENT TO SOBRIETY; DISCUSSED FROM INPATIENT TO OUTPATIENT SERVICES. PATIENT THANKED THESE SW FOR ALL THE INFORMATION AND STATED THAT SHE WILL BE CALLING RESIDENTIAL TREATMENT CENTER FROM THE LIST GIVEN TO HER BY MARLENI. PER PATIENT SHE HAS A PCP BUT HAS NOT SEE PRASANNA BUENO IN A LONG TIME ABOUT 2 YEARS. SW DISCUSSED WITH PATIENT OF THE IMPORTANCE OF MAKING A FOLLOW UP APPOINTMENT WITH IN 5-7 DAYS. PATIENT AGREED AND WILL BE ABLE TO ATTEND TO HER SCHEDULED APPOINTMENT. PATIENT REPORTED GETTING HER MEDICATIONS AT [facility] IN [facility]. PATIENT ALSO REPORTED BEEN INDEPENDENT AND NOT NEEDING OF ANY DME. PATIENT STATED THAT HER MOTHER WILL BE PICKING HER UP WHEN SHE IS READY FOR DC FROM [facility]. PATIENT THANKED SW FOR THE INFORMATION PROVIDED. SW WILL FOLLOW UP WITH PATIENT NEEDED.
--- NOTE | 2021-04-17 11:20 | NUR ---
DC PLANNING: THE PATIENT ADMITTED THROUGH THE ER WITH C/O RUQ PAIN X 2 WEEKS. H/O ETOH ABUSE, PANCREATITIS AND GI ULCERS, AND ASTHMA. PATIENT JAUNDICED IN APPEARANCE, AST AND ALK PHOS ELEVATED. GB US SHOWS SLUDGE, GB WALL THICKENING AND HEPATOMEGALY, POSSIBLE LIVER MASS. HIDA SCAN SHOWS ENLARGED LIVER AND FAT DEPOSITION. ON PROTONIX, ZOFRAN, MVI AND THIAMINE, ATIVAN PRN. CM SPOKE WITH THE PATIENT AT BEDSIDE, CONFIRMED HER ADDRESS AND PHONE NUMBER PER HER FACE SHEET. THE PATIENT STATES THAT SHE LIVES WITH HER AND 2 CHILDREN AGES 7 AND 14. 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 CONFIRMED THAT HAD RECEIVED ETOH REHAB AND TREATMENT RESOURCES FROM THE , PATIENT STATES SHE DID AND ALSO STATES "I KNOW WHAT I NEED TO DO". PER MARLENI PATINO, PATIENT IS CURRENTLY UNEMPLOYED AND IS LIVING WITH HER MOTHER HER HAS BEEN SOBER FOR 6 MONTHS AND DOES NOT WANT PATIENT IN RESIDENCE WITH THEIR CHILDREN UNLESS SHE ISN'T DRINKING. PATIENT TO DC TO HOME WHEN CLINICALLY STABLE, CM WILL FOLLOW. Addendum: 04/17/21 at 1139 by Mansi Laurent CM Amended: Links added.
[2021-04-17] MEDS: DEXT 5% /NACL 0.9% 1,000 ML IV SCH (12:00)
[2021-04-17] MEDS ORDERED: POTASSIUM CHLORIDE 10 MEQ TABER PO SCH (14:15)
[2021-04-17] MEDS ORDERED: MAG SULF 2000 MG/WATER PREMIX 50 ML IV SCH (14:30)
--- NOTE | 2021-04-17 15:58 | NUR ---
04/17/21 RD INITIAL ASSESSMENT COMPLETED PLEASE REFER TO NUTRITION ASSESSMENT UNDER CARE ACTIVITY FOR ESTIMATED NUTRITIONAL NEEDS. 1. RECOMMEND REGULAR DIET TOLERATED 2. PROVIDED NUTRITION EDUCATION WITH HANDOUTS FOR NAUSEA AND VOMITING 3. RD TO FOLLOW-UP 3-5 DAYS, MODERATE RISK (DOWNGRADED D/T NO GI SYMPTOMS) JAILENE [address]
[2021-04-17 16:00] VITALS: BP 103/63
[2021-04-17] MEDS: ACETAMINOPHEN 325 MG TAB PO PRN (19:07)
--- NOTE | 2021-04-17 19:30 | NUR ---
ENDORSED PT TO UMBRELLA REPAIRER NURSE FOR CONTINUITY OF CARE.
--- NOTE | 2021-04-17 19:31 | NUR ---
RECD. RESTING IN BED, AWAKE, A/OX4. RESPIRATION EVEN AND UNLABORED. IV OF D5 NS INFUSING AT 75 ML/HR, LEFT HAND G22. INDEPENDENT, ABLE TO AMBULATE BY HERSELF. MEDICATIONS FOR THE NIGHT DISCUSSED WITH PATIENT. VERBALIZED UNDERSTANDING. VERBALIZED SHE WANTS MEDICATION FOR ANXIETY AND SLEEP. WILL MEDICATE ORDERED. DENIES PAIN 0/10.
--- NOTE | 2021-04-17 20:39 | NUR ---
WITH ANXIETY, MEDICATED WITH ATIVAN PER MD ORDER BY CHARGE NURSE COREY.
--- NOTE | 2021-04-17 20:56 | NUR ---
Patient's Plan of Care was discussed and reviewed with DRESS SHOE INSPECTOR: MERLE CHILDERS
--- NOTE | 2021-04-17 21:39 | NUR ---
NO ANXIETY, WATCHING SHOW IN HER CELLPHONE.
[2021-04-18] VITALS: BP 108/62
[2021-04-18] MEDS: DEXT 5% /NACL 0.9% 1,000 ML IV SCH ×2 (00:45→07:00)
[2021-04-18] MEDS: HYDROcodone/APAP 5/325 MG 1 TAB TAB PO PRN (01:38)
[2021-04-18] MEDS: ACETAMINOPHEN 325 MG TAB PO PRN ×2 (03:08→07:07)
--- NOTE | 2021-04-18 03:08 | NUR ---
TEMPERATURE CHECKED - 102.1 F, MEDICATED WITH TYLENOL PER MD ORDER. COOLING MEASURES GIVEN.
--- NOTE | 2021-04-18 04:05 | NUR ---
TEMPERATURE CHECKED - 100.3 F, CONTINUE WITH COOLING MEASURES.
--- NOTE | 2021-04-18 06:30 | NUR ---
TEMPERATURE CHECKED - 99.6F. AWAKE, IN BED. CONDITION REMAIN STABLE.
[2021-04-18 07:18] LABS: BASOPHILS % (AUTO) 0.7 % (0.0-2.0); EOSINOPHILS # (AUTO) 0.2 K/uL (0-0.4); EOSINOPHILS % (AUTO) 3.6 % (0.0-4.0); HEMATOCRIT 31.6 % (36-48); LYMPHOCYTES # (AUTO) 0.6 K/uL (2.5-16.5); LYMPHOCYTES % (AUTO) 14.2 % (20.5-51.1); MEAN CORPUSCULAR HEMOGLOBIN 38 pg (27-31); MEAN CORPUSCULAR HGB CONC 35 g/dL (33-37); MEAN CORPUSCULAR VOLUME 109.5 fL (80-94); MONOCYTES # (AUTO) 0.4 K/uL (0.8-1.0); MONOCYTES % (AUTO) 8.8 % (1.7-9.3); NEUTROPHILS # (AUTO) 3.1 K/uL (1.8-7.7); NEUTROPHILS % (AUTO) 72.7 % (42.2-75.2); PLATELET COUNT (AUTO) 83 K/uL (140-450); RED BLOOD CELL COUNT(AUTO) 2.89 MIL/uL (4.20-5.40); RED CELL DISTRIBUTION WIDTH 16.2 % (11.6-13.7); WHITE BLOOD COUNT (AUTO) 4.3 K/uL (4.8-10.8)
--- NOTE | 2021-04-18 07:20 | NUR ---
ENDORSED TO AM NURSE FOR CONTINUITY OF CARE.
[2021-04-18 07:41] LABS: ALBUMIN 2.3 g/dL (3.4-5.0); ANION GAP 12.4 (8-16); CREATININE 0.4 mg/dL (0.6-1.3); MAGNESIUM 1.7 mg/dL (1.8-2.4); POTASSIUM 3.4 mmol/L (3.5-5.1); TOTAL BILIRUBIN 5.6 mg/dL (0.0-1.0)
[2021-04-18] MEDS ORDERED: MAGNESIUM OXIDE 400 MG TAB PO SCH (09:00)
[2021-04-18] MEDS ORDERED: POTASSIUM CHLORIDE 10 MEQ TABER PO SCH (09:00)
[2021-04-18] MEDS: MULTIVITAMIN/MINERALS 1 TAB PO SCH (09:36)
[2021-04-18] MEDS: chlordiazePOXIDE 25 MG CAP PO SCH (09:37)
[2021-04-18] MEDS: THIAMINE 100 MG TAB PO SCH (09:37)
[2021-04-18] MEDS: PANTOPRAZOLE 40 MG INJ VIAL IVP SCH (09:38)
[2021-04-18] MEDS ORDERED: LORA-476 PO (10:03)
[2021-04-18] MEDS ORDERED: THIA-34 PO (10:03)
[2021-04-18] MEDS ORDERED: FOLI1TAB90 PO (10:03)
[2021-04-18 11:36] VITALS: BP 108/62
--- NOTE | 2021-04-18 11:50 | NUR ---
PT IS AWAKE AND ALERT. PT DC TO HOME, SISTER PICKED HER UP IN FRONT OF LOBBY. IV TAKEN OUT AND INTACT. PT BREATHING IS EVEN AND UNLABORED. NO S/S OF DISTRESS. PT IS STABLE.
--- NOTE | 2021-04-22 15:49 | NUR ---
MARLENI CALLED PATIENT'S PCP OFFICE AT TO SCHEDULED A FOLLOW UP APPOINTMENT FOR PATIENT AFTER HER DC FROM [facility]. MARLENI SPOKE TO MICHELLE WHO PROVIDED A FOLLOW UP APPOINTMENT FOR PATIENT VIA TELEHEALTH UNTIL 04/29/2021 AT 10:00AM WITH DR. PRASANNA MAST BECAUSE THAT IS THE ONLY TIME PCP OFFICE HAS AVAILABLE PER MICHELLE. MARLENI SCHEDULED APPT AND ENDED THE CALL. MARLENI CALLED PATIENT TO INFORM HER OF SCHEDULED APPOINTMENT BY THERE HOP FARMER WITH PCP AFTER HER DISCHARGE FROM [facility]. MARLENI PROVIDED PATIENT WITH ALL INFORMATION TIME, AND DATE FOR THE FOLLOW UP APPOINTMENT VIA TELEHEALTH. PATIENT AGREED TO BE AVAILABLE FOR APPOINTMENT, THANKED THESE HOP FARMER AND ENDED THE CALL.
== END 2021-04-18 11:57 | disposition home or self-care (01) | DRG 280 ==
LOC: MED 00:20 → MTU 08:47
PROVIDERS: ADMIT Internal Medicine; ATTEND Internal Medicine
DX: K70.10 Alcoholic hepatitis without ascites (principal); D68.9 Coagulation defect, unspecified; D69.6 Thrombocytopenia, unspecified; E44.1 Mild protein-calorie malnutrition; R16.2 Hepatomegaly with splenomegaly, not elsewhere classified; J45.909 Unspecified asthma, uncomplicated; K21.9 Gastro-esophageal reflux disease without esophagitis; D50.9 Iron deficiency anemia, unspecified; F10.239 Alcohol dependence with withdrawal, unspecified; Z20.822 Contact with and (suspected) exposure to COVID-19; Z91.040 Latex allergy status; Z79.2 Long term (current) use of antibiotics; Z79.899 Other long term (current) drug therapy; Z68.28 Body mass index [BMI] 28.0-28.9, adult
CPT/HCPCS: 36415; 76705; 78445; 80053; 81001; 83690; 83735; 85025; 85610; 87081; 87086; 96361; 96365; 96375; 99285; A9510; C9113; J0696; J1200; J2060; J2270; J2765; J3475; Q0092; Q9967

== ENCOUNTER 2021-05-02 17:56 | Emergency (ER) | payer OTHER, SELFPAY ==
[~2021-05-02] VITALS: Ht 152.4 cm; Wt 63.5 kg
[~2021-05-02 17:56] MED LIST changes: -ALBU0.0912 IH; -CIPR500T4 PO; +FOLI1TAB90 PO; -METR-520 PO; +THIA-34 PO
[2021-05-02 18:00] VITALS: BP 135/82
--- NOTE | 2021-05-02 18:30 | NUR ---
Erica alcantar in [facility] - 05/02/21 at 1833 by [email or web address] PT W/C ASSISTED TO BED
--- NOTE | 2021-05-02 18:30 | NUR ---
PT W/C ASSISTED TO ER BED 4
--- NOTE | 2021-05-02 18:33 | NUR ---
LAB AT BEDSIDE
[2021-05-02 18:47] LABS: BASOPHILS # (AUTO) 0.1 K/uL (0.00-0.22); BASOPHILS % (AUTO) 0.7 % (0.0-2.0); EOSINOPHILS # (AUTO) 0.4 K/uL (0-0.4); EOSINOPHILS % (AUTO) 4.3 % (0.0-4.0); HEMATOCRIT 34.4 % (36-48); HEMOGLOBIN 11.8 g/dL (12.0-16.0); LYMPHOCYTES # (AUTO) 1.9 K/uL (2.5-16.5); LYMPHOCYTES % (AUTO) 21.5 % (20.5-51.1); MEAN CORPUSCULAR HEMOGLOBIN 37 pg (27-31); MEAN CORPUSCULAR HGB CONC 34 g/dL (33-37); MEAN CORPUSCULAR VOLUME 107.1 fL (80-94); MONOCYTES # (AUTO) 0.5 K/uL (0.8-1.0); MONOCYTES % (AUTO) 5.1 % (1.7-9.3); NEUTROPHILS % (AUTO) 68.4 % (42.2-75.2); PLATELET COUNT (AUTO) 214 K/uL (140-450); RED BLOOD CELL COUNT(AUTO) 3.22 MIL/uL (4.20-5.40); RED CELL DISTRIBUTION WIDTH 16.2 % (11.6-13.7); WHITE BLOOD COUNT (AUTO) 8.8 K/uL (4.8-10.8)
--- NOTE | 2021-05-02 18:57 | NUR ---
35 y/o female came in for c/o upper abd pain. Patient has body aches. Patient was discharged 2 weeks ago from hospital for same s/s. pmh: jaundice, cirrhosis, pancreatitis allergy: latex med: chlordiazepoxide
[2021-05-02 19:01] LABS: ALBUMIN 2.7 g/dL (3.4-5.0); ANION GAP 16.1 (8-16); CARBON DIOXIDE 25.4 mmol/L (21-32); CREATININE 0.5 mg/dL (0.6-1.3); POTASSIUM 3.5 mmol/L (3.5-5.1); TOTAL BILIRUBIN 1.9 mg/dL (0.0-1.0)
--- NOTE | 2021-05-02 19:25 | NUR ---
Pt report given to ANTONIETA WAITE. Transfer of care at this time.
[2021-05-02] MEDS ORDERED: MORPHINE SULFATE 4 MG/ML SYR IM ONE (20:25)
[2021-05-02] MEDS ORDERED: IBUP-2213 PO (21:35)
[2021-05-02] MEDS ORDERED: ACET-8386 PO (21:35)
[2021-05-02 22:07] VITALS: BP 95/60
--- NOTE | 2021-05-02 22:08 | NUR ---
Patient discharged with v/s stable. Written and verbal after care instructions given and explained. Patient alert, oriented and verbalized understanding of instructions. Ambulatory with steady gait. All questions addressed prior to discharge. ID band removed. Patient advised to follow up with PMD. Rx of HYDROCODONE/ACETAMINOPHEN AND IBUPROFEN given. Patient educated on indication of medication including possible reaction and side effects. Opportunity to ask questions provided and answered.
--- NOTE | 2021-05-02 22:09 | NUR ---
WARM COMPRESS GIVEN TO PATIENT PRIOR TO DISCHARGE.
== END 2021-05-02 22:07 | disposition home or self-care (01) ==
LOC: MED 17:56
DX: R10.11 Right upper quadrant pain (principal); R50.9 Fever, unspecified; R19.7 Diarrhea, unspecified; J45.909 Unspecified asthma, uncomplicated; K21.9 Gastro-esophageal reflux disease without esophagitis; Z79.899 Other long term (current) drug therapy; Z91.040 Latex allergy status
CPT/HCPCS: 36415; 80053; 81002; 81025; 82140; 83690; 85025; 96372; 99285; J2270